=== PATIENT | female | born 1955 | race Caucasian/White ===

== ENCOUNTER 2016-09-12 20:55 | Emergency (ER) | payer OTHER ==
[~2016-09-12] VITALS: Ht 160 cm; Wt 69.0 kg
[~2016-09-12 20:55] MED LIST: TRIAMCINOL0.1 %/453 TOP
--- NOTE | 2016-09-12 22:29 | ED CARDIAC/CP/PALPITATIONS ---
History of Present Illness General Chief Complaint: Palpitations Stated Complaint: HIGH BP/PALPITATIONS Source: patient, family Exam Limitations: language barrier Vital Signs & Intake/Output Vital Signs & Intake/Output Vital Signs Date Time Temp Pulse Resp B/P Pulse O2 O2 Flow FiO2 Ox Delivery Rate 09/12 2316 96.8 69 16 131/78 97 Room Air 09/12 2208 Room Air 09/125 98.3 79 18 143/82 97 Room Air Allergies Uncoded Allergies: ANTIBIOTIC (UNSURE WHICH ABX 09/12/16) Reconcile Medications Triamcinolone Acetonide (Triamcinolone 0.1% Cream 453 Gm) 0.5 % CREAM..G. 1 ELIGIO TOP BID PRN itch apply to affected area(s) Triage Note: PT IS SCOTTISH SPEAKING, FAMILY INTERPRETTING PT TO ED C/O PALPITAIONS OFF AND ON AND HIGH BP AT HOME, SBP 160. PMH OF FREQUENT AND LONGER LASTING PALPATION EPISODES. EPISODES TODAY LASTING APPROX 10 MINS WITH "EAR POPPING" TATES XANAX 1/2 OF 0.25 MG DAILY. TOOK LORISTA 50 MG AND KATOPIL 25 MG 90 MINS COMPUTER OPERATOR FOR BP. DENIES PAIN AT THIS TIME, DENIES SOB, DOES NOT FEEL PALPITATIONS AT THIS TIME Triage Nurses Notes Reviewed? yes Onset: Abrupt Duration: better, gone now Timing: single episode today Quality/Severity: moderate Radiation: no radiation HPI: Patient is a 61-year-old female past medical history of hypertension, ANXIETY, AND HYPERLIPIDEMIA presents emergency room with family members and was patient is primarily [place] speaking only however son is here to translate pain that approximately 7:30 this evening patient drank a couple coffee and approximately half hour later complaining of acute onset of heart palpitations and blood pressure was noted to be 160/100. Patient states that the heart palpitations this has resolved and lasted approximately one hour. Patient's states that her primary care doctor has told her that when the blood pressure is taken to begin when necessary medications prescribed IN [facility] by primary care doctor The takes a blood pressure which checks her blood pressure twice a day once in the morning once in the evening. Patient denies ever having any fever, chills, chest pain or pain jaw pain nausea vomiting dizziness leg swelling hemoptysis shortness of breath cough Patient currently is asymptomatic Is no blood pressure is noted to be 143/82 on arrival Family does state that medications of 50 mg of losartan, 25 mg of captopril and 0.25 mg of alprazolam was administered after symptoms began (AZAM JONES) Past History Travel History Traveled to [place] past 21 day No Medical History Any Pertinent Medical History? see below for history Cardiovascular: hypertension, hyperlipidemia, PALPITATIONS Psychiatric: anxiety Surgical History Surgical History: non-contributory Psychosocial History What is your primary language [place]ican Tobacco Use: Never used Family History Hx Contributory? No (AZAM JONES) Review of Systems Review of Systems Constitutional: Reports: no symptoms. EENTM: Reports: no symptoms. Respiratory: Reports: no symptoms. Cardiovascular: Reports: see HPI. GI: Reports: no symptoms. Genitourinary: Reports: no symptoms. Musculoskeletal: Reports: no symptoms. Skin: Reports: no symptoms. Neurological/Psychological: Reports: no symptoms. Hematologic/Endocrine: Reports: no symptoms. Immunologic/Allergic: Reports: no symptoms. All Other Systems: Reviewed and Negative (AZAM JONES) Physical Exam Physical Exam General Appearance: no apparent distress, alert Cardiovascular: regular rate/rhythm Comments: Well-developed well-nourished person in no acute distress HEENT: Normal EENT exam, extraocular motion intact, no nystagmus. Pupils equally round and reactive to light and accommodation. Nose is atraumatic. External auditory canal and Tympanic membranes clear. Pharynx normal. No swelling or edema. Neck: Supple, no lymphadenopathy, normal range of motion without pain or tenderness Back: Nontender, no CVA tenderness. Cardiovascular: Regular rate and rhythms no murmurs rubs or gallops, normal JVP Respiratory: Chest nontender. No respiratory distress.breath sounds clear to auscultation bilaterally Abdomen: Soft, nontender nondistended, no appreciable organomegaly. Normal bowel sounds. No ascites Extremity: No edema, no calf tenderness to palpation, normal and equal pulses. Neuro: Alert oriented x3, motor sensory normal, Skin: No appreciable rash on exposed skin, skin is warm and dry. Psych: Mood and affect is normal, memory and judgment is normal. Core Measures ACS in differential dx? No Severe Sepsis Present: No Septic Shock Present: No (AZAM JONES) Progress Differential Diagnosis: AMI, aortic dissection, atrial fibrillation, cholecystitis, CHF/pulm edema, costochondritis, hyperkalemia, hypovolemia, hyperthyroid, hyperventilation, intracranial hemorrhage, musculoskeletal pain, myocarditis, pancreatitis, pericarditis, pneumonia, pneumothorax, PSVT, pulmonary embolism, PUD/GERD, PVCs/PACs, respiratory failure, rib fracture, sepsis, unstable angina, V-fib/V-Tach, WPW syndrome Plan of Care: Orders Procedure Date/time Status TROPONIN LEVEL 09/12 2232 Complete COMPREHENSIVE METABOLIC PANEL 09/12 2232 Complete CBC WITHOUT DIFFERENTIAL 09/12 2232 Complete EKG 09/12 2057 Active Laboratory Tests 09/12/162241: Anion Gap 10, Estimated GFR > 60, BUN/Creatinine Ratio 18.3, Glucose 88, Calcium 9.4, Total Bilirubin 0.5, AST 20, ALT 30, Alkaline Phosphatase 67, Troponin I < 0.01, Total Protein 6.9, Albumin 4.2, Globulin 2.7, Albumin/Globulin Ratio 1.6, CBC w Diff NO MAN DIFF REQ, RBC 3.96 L, MCV 89.7, MCH 29.9, RDW 14.4, MPV 8.6, Gran % 57.5, Lymphocytes % 34.0, Monocytes % 6.3, Eosinophils % 1.8, Basophils % 0.4, Absolute Granulocytes 4.8, Absolute Lymphocytes 2.8, Absolute Monocytes 0.5 , Absolute Eosinophils 0.2, Absolute Basophils 0, PUBS MCHC 33.3 Patient currently is in no apparent distress blood pressure was noted to be normotensive. Patient is asymptomatic Patient had unremarkable blood work and again while in the emergency room patient was asymptomatic blood pressure was normotensive. Patient was strongly advised to follow up with [facility] psychiatrist to establish as discussed in discharge instructions. Family had no questions (AZAM JONES) Initial ED EKG: SINUS RHYTHM NOTED AT 64 BPM lvh Prior EKG: unchanged (AZAM JONES) Departure Departure Disposition: HOME OR SELF CARE Condition: Stable Clinical Impression Primary Impression: Palpitations Referrals: ERIKA MIRANDA,HARIS LOPEZ MD,GISEL (PCP/Family) Additional Instructions: As discussed continue all medications as directed and continue to check blood pressure. If symptoms worsen return to the emergency room. On Tuesday please follow up and establish [facility] psychiatrist Dr. Silva for further evaluation and treatment Please try to avoid caffeine as this may be causing her symptoms Departure Forms: Customer Survey General Discharge Information (AZAM JONES) PA/SEISMOMETER OPERATOR Co-Sign Statement Statement: ED Attending supervision documentation- [] I saw and evaluated the patient. I have also reviewed all the pertinent lab results and diagnostic results. I agree with the findings and the plan of care as documented in the PA's/SEISMOMETER OPERATOR's documentation. [X] I have reviewed the ED Record and agree with the PA's/SEISMOMETER OPERATOR's documentation. [] Additions or exceptions (if any) to the PAs/SEISMOMETER OPERATOR's note and plan are summarized below: [] (CHANEL MIRANDA,BRIEN) Critical Care Note Critical Care Note Critical Care Time: non-applicable (ROSETTE DISLA,AZAM)
[2016-09-12 22:51] LABS: ABSOLUTE BASOPHIL COUNT 0 /CUMM (0.0-0.2); ABSOLUTE EOSINOPHIL COUNT 0.2 /CUMM (0.0-0.7); ABSOLUTE GRANULOCYTE CT 4.8 /CUMM (1.4-6.5); ABSOLUTE LYMPH COUNT 2.8 /CUMM (1.2-3.4); ABSOLUTE MONOCYTE COUNT 0.5 /CUMM (0.10-0.60); BASOPHIL % 0.4 % (0.0-2.0); EOSINOPHIL % 1.8 % (0-5); GRANULOCYTE % 57.5 % (42.2-75.2); HEMATOCRIT 35.5 % (37-47); MEAN CORPUSCULAR HGB 29.9 PG (27.0-31.0); MEAN CORPUSCULAR HGB CONC 33.3 G/DL (33.0-37.0); MEAN CORPUSCULAR VOLUME 89.7 FL (81.0-99.0); MEAN PLATELET VOLUME 8.6 FL (7.4-10.4); PLATELET COUNT 248 /CUMM (130-400); RBC DISTRIBUTION WIDTH 14.4 % (11.5-14.5); RED BLOOD CELL CT 3.96 /CUMM (4.20-5.40); WHITE BLOOD CELL COUNT 8.3 /CUMM (4.8-10.8)
[2016-09-12 23:16] VITALS: BP 131/78
== END 2016-09-12 23:26 ==
LOC: ERH 20:55
PROVIDERS: Physician Assistant
DX: R00.2 Palpitations (principal)
CPT/HCPCS: 93005; 93010